=== PATIENT | female | born 1945 | race African-American/Black ===

== ENCOUNTER 2021-05-04 08:05 | Inpatient (IN) | payer MEDICARE ==
[~2021-05-04] VITALS: Ht 165.1 cm; Wt 105.0 kg
--- NOTE | 2021-05-04 08:33 | PHYS DOC ---
Adult General Chief Complaint Chief Complaint: NEURO SYMPTOMS/DEFICITS HPI HPI Patient is a 75-year-old female presenting via EMS for altered mental status. Patient is here visiting family from [place] and was supposed to fly home today. Daughter at bedside providing majority of history and states that patient was at baseline health yesterday without any known intoxication, trauma, ingestion or other major change in health. She was reportedly nauseous and had x2 episodes of nonbloody S nonbilious emesis. She began shaking which is not uncommon for her and subsequently fell asleep a couple hours later. Patient woke up this morning and was less responsive than usual with continued shaking concerning family members who ultimately called EMS for transfer to our facility. On arrival, EMS noted that patient GCS 10 and hemodynamically stable. Patient has extensive medical history significant for atrial fibrillation status post pacemaker with Eliquis use and dementia. She has had no recent changes in medication or sick contacts. She is fully vaccinated against COVID- 19 with additional booster. Daughter at bedside does note that patient is DNR/DNI Review of Systems Review of Systems Unobtainable due to mentation of patient Allergies Allergies Allergies Uncoded Allergies Type Severity Reaction Last Updated Verified SULFA Allergy Unknown 05/04/21 Physical Exam Physical Exam Constitutional: Patient is age-appropriate, in no acute distress but appears altered, toxic appearing HEENT: Head: Normocephalic but there is soft fluctuance palpated on posterior occiput without any obvious depression TMs clear, no hemotympanum Conjunctivae and EOM are normal. Pupils are equal, round, and reactive to light. Oropharynx is clear and moist. No hematomas or lacerations or abrasions to face or scalp OP clear, no blood, no malocclusion, dentition intact Nares clear, no nasal septal hematoma Midface stable Neck: C-spine midline nontender, no step-offs Cardiovascular: Normal rate, regular rhythm and normal heart sounds. Pulmonary/Chest: Effort normal and breath sounds normal. No respiratory distress. No wheezes. CTA bilaterally Abdominal: Soft. Bowel sounds are normal. Pt exhibits no distension. There is no tenderness. Musculoskeletal: No bony tenderness to extremities, no deformities, full ROM extremities Chest wall stable Pelvis stable and non-tender No vertebral TTP and spine without stepoffs Neurological: Pt is alert but not oriented to person place or time GCS 11 (E4, V3, M5) Moving all extremities willfully, able to wiggle all fingers and toes Motor and sensory function grossly intact Downgoing toes bilaterally to stimulation Skin: Skin is warm and dry. No abrasions, no lacerations Psychiatric: Unable to fully evaluate Current Patient Data Vital Signs Vital Signs Date Time Temp Pulse Resp B/P (MAP) Pulse Ox O2 Delivery O2 Flow Rate FiO2 05/04/21 08:06 98.1 104 16 152/100 (117) 100 Room Air Vital Signs Date Time Temp Pulse Resp B/P (MAP) Pulse Ox O2 Delivery O2 Flow Rate FiO2 05/04/21 08:06 98.1 104 16 152/100 (117) 100 Room Air Lab Results Laboratory Tests Test 05/04/21 08:25 05/04/21 08:28 05/04/21 08:32 05/04/21 08:45 White Blood Count 15.8 x10^3/uL Red Blood Count 3.38 x10^6/uL Hemoglobin 9.7 g/dL Hematocrit 29.4 % Mean Corpuscular Volume 87 fL Mean Corpuscular Hemoglobin 29 pg Mean Corpuscular Hemoglobin Concent 33 g/dL Red Cell Distribution Width 16.1 % Platelet Count 247 x10^3/uL Neutrophils (%) (Auto) 44 % Lymphocytes (%) (Auto) 46 % Monocytes (%) (Auto) 9 % Eosinophils (%) (Auto) 1 % Basophils (%) (Auto) 1 % Neutrophils # (Auto) 6.9 x10^3uL Lymphocytes # (Auto) 7.3 x10^3/uL Monocytes # (Auto) 1.3 x10^3/uL Eosinophils # (Auto) 0.1 x10^3/uL Basophils # (Auto) 0.2 x10^3/uL Segmented Neutrophils % 41 % Lymphocytes % 44 % Atypical Lymphocytes % (Manual) 10 % Monocytes % 3 % Eosinophils % 1 % Myelocytes % 1 % Platelet Estimate Adequate Platelet Clumps, EDTA Present Prothrombin Time 11.6 SEC Prothromb Time International Ratio 1.1 Activated Partial Thromboplast Time 24 SEC Sodium Level 144 mmol/L Potassium Level 4.9 mmol/L Chloride Level 107 mmol/L Carbon Dioxide Level 26 mmol/L Anion Gap 11 Blood Urea Nitrogen 53 mg/dL Creatinine 1.8 mg/dL Estimated GFR (Cockcroft-Gault) 33.0 BUN/Creatinine Ratio 29 Glucose Level 124 mg/dL Lactic Acid Level 1.5 mmol/L Calcium Level 8.7 mg/dL Phosphorus Level 3.0 mg/dL Magnesium Level 3.1 mg/dL Total Bilirubin 0.4 mg/dL Aspartate Amino Transf (AST/SGOT) 40 U/L Alanine Aminotransferase (ALT/SGPT) 14 U/L Alkaline Phosphatase 72 U/L Troponin I High Sensitivity 21 ng/L EH-Blf-C-Type Natriuretic Peptide 913 pg/mL Total Protein 6.7 g/dL Albumin 3.0 g/dL Albumin/Globulin Ratio 0.8 Lipase 174 U/L Salicylates Level 1.3 mg/dL Salicylate Last Dose Date Unknown Salicylate Last Dose Time Unknown Acetaminophen Level < 2.0 mcg/mL Acetaminophen Last Dose Date Unknown Acetaminophen Last Dose Time Unknown Ethyl Alcohol Level < 10 mg/dL Glucose (Fingerstick) 117 mg/dL Influenza Type A (Rapid) Negative Influenza Type B (Rapid) Negative SARS-CoV-2 Antigen (Rapid) Negative Bedside Venous pH 7.61 Bedside Venous pCO2 29 mmHg Bedside Venous pO2 103 mmHg Venous Blood HCO3 29 mmol/L POC Venous O2 Saturation (Areli) 99 % Bedside FiO2 21 Test 05/04/21 09:18 Urine Collection Type U cath Urine Color Yellow Urine Clarity Clear Urine pH 7.0 Urine Specific [place] 1.015 Urine Protein Neg Urine Glucose (UA) Neg mg/dL Urine Ketones (Stick) Neg mg/dL Urine Blood Neg Urine Nitrite Neg Urine Bilirubin Neg Urine Urobilinogen Dipstick 0.2 mg/dL Urine Leukocyte Esterase Neg Urine RBC Occ /HPF Urine WBC Occ /HPF Urine Squamous Epithelial Cells Many /LPF Urine Transitional Epithelial Cells Mod /LPF Urine Renal Epithelial Cells Few /LPF Urine Bacteria 0 /HPF Urine Hyaline Casts Occ /HPF Urine Mucus Slight /LPF Urine Opiates Screen Neg Urine Methadone Screen Neg Urine Barbiturates Neg Urine Phencyclidine Screen Neg Urine Amphetamine/Methamphetamine Neg Urine Benzodiazepines Screen Neg Urine Cocaine Screen Neg Urine Cannabinoids Screen Neg Urine Ethyl Alcohol Neg EKG EKG EKG ordered and interpreted by myself at 0813 hrs. as an AV paced rhythm at 85 bpm, prolonged QRS at 150 and QTC at 500, left axis deviation, no STEMI Radiology/Procedures Radiology/Procedures EXAMINATION: CT HEAD/BRAIN WO CLINICAL HISTORY: Altered mental status TECHNIQUE: Serial axial images without IV contrast were obtained from the vertex to the foramen magnum. CT Dose Reduction Employed: One or more of the following individualized dose reduction techniques were utilized for this examination: 1. Automated exposure control 2. Adjustment of the mA and/or kV according to patient size 3. Use of iterative reconstruction technique. COMPARISON: None FINDINGS: Acute Change: No evidence of an acute infarct or other acute parenchymal process. Hemorrhage: No evidence of acute intracranial hemorrhage. Mass Lesion/Mass Effect: No evidence of intracranial mass or extraaxial fluid collection. No significant mass effect. Chronic Change: Scattered patchy foci of hypoattenuation in the supratentorial white matter, nonspecific but likely represents mild microvascular ischemia. Atherosclerotic calcification of the intracranial portion of the bilateral internal carotid arteries. Parenchyma: Mild generalized volume loss, asymmetrically prominent in the frontal lobes. Ventricles: Ventricular enlargement concordant with degree of parenchymal volume loss. Paranasal Sinuses and Skull Base: Visualized paranasal sinuses clear. Visualized skull base and soft tissues unremarkable. IMPRESSION: No evidence of acute intracranial abnormality. Electronically signed by: Lenin Burton DO (05/04/2021 8:55 AM) [id number] /////////////////////////////// EXAMINATION: XR CHEST 1V CLINICAL HISTORY: Nausea and vomiting EXAM DATE/TIME: 05/04/2021 8:40 AM COMPARISON: None FINDINGS: Lines, Tubes, and Devices: Implantable cardiac loop recorder in place. Cardiomediastinal Silhouette: Cardiomegaly. Aortic atherosclerotic calcification. Lungs and Pleura: Mild bibasilar subsegmental atelectasis and/or scarring. No focal airspace consolidation or pleural effusion. Pulmonary vasculature unremarkable. Bones and Soft Tissues: Degenerative changes in the thoracic spine. IMPRESSION: No evidence of acute cardiopulmonary abnormality. Cardiomegaly. Electronically signed by: Lenin Burton DO (05/04/2021 8:57 AM) [id number] ////////////////////////// EXAMINATION: (CT CHEST WITHOUT IV CONTRAST and CT ABDOMEN AND PELVIS WITHOUT IV CONTRAST) CLINICAL HISTORY: Altered mental status TECHNIQUE: CT of the chest performed without IV contrast, scanning from the thoracic inlet to the upper abdomen. CT of the abdomen and pelvis performed without IV contrast, scanning from just above the dome of the diaphragm to the symphysis pubis. CT Dose Reduction Employed: One or more of the following individualized dose reduction techniques were utilized for this examination: 1. Automated exposure control 2. Adjustment of the mA and/or kV according to patient size 3. Use of iterative reconstruction technique. COMPARISON: Chest radiograph same day FINDINGS: CHEST: Lines, Tubes, and Devices: Implantable cardiac loop recorder in place. Lung Parenchyma and Pleura: Prominent respiratory motion artifact limits evaluation. Mild scattered subsegmental atelectasis and/or scarring, greatest in the lung bases. No consolidation. No pleural effusion. Central airways are patent. Lower Neck, Mediastinum, and Heart: Visualized thyroid gland within normal limits. No mediastinal, hilar, or axillary lymphadenopathy. Main pulmonary artery normal in caliber. Mild aortic atherosclerotic calcification without aneurysm. Mild coronary atherosclerotic calcification, incompletely evaluated. Cardiomegaly. Bones/Soft Tissues: Multilevel cervicothoracic degenerative changes. ABDOMEN/PELVIS: Liver: Unremarkable. Biliary: Gallbladder unremarkable. Spleen: Unremarkable. Pancreas: Unremarkable. Adrenals: Unremarkable. Kidneys: Unremarkable. GI Tract: No dilated bowel. Mild diverticulosis distal colon without evidence of acute diverticulitis. Appendix within normal limits. Vasculature: Arterial atherosclerotic calcification without aneurysm. Pelvis: Mildly filled urinary bladder. Myometrial and parametrial calcifications, likely vascular. Ovaries unremarkable. Bones/Soft Tissues: Grade 1 L4-5 anterolisthesis with suspected remote bilateral L4 spondylolysis. Multilevel lumbar facet arthropathy, greatest in the lower lumbar spine. IMPRESSION: No evidence of acute cardiopulmonary or abdominopelvic abnormality. Electronically signed by: Lenin Burton DO (05/04/2021 9:15 AM) [id number] Heart Score C/O Chest Pain: No HEART Score for Chest Pain: HEART Score for Chest Pain Response (Comments) Value History Moderately Suspicious 1 ECG Nonspecific Repolarizatio 1 Age > 65 2 Risk Factors >3 Risk Factors or Hx CAD 2 Troponin < Normal Limit 0 Total 6 Risk Factors: Risk Factors: DM, Current or recent (<one month) smoker, HTN, HLP, family history of CAD, obesity. Risk Scores: Risk Factors: DM, Current or recent (<one month) smoker, HTN, HLP, family history of CAD, obesity. Course & Med Decision Making Course & Med Decision Making Airway patent, breathing unlabored, IV access and vitals obtained that were grossly nonconcerning HPI limited from patient, physical exam and comprehensive ER work-up ordered Further history elicited from family members, no obvious ingestion, trauma or other mechanism of injury to precipitate presentation today I reviewed entirety of ER work-up findings with patient and family at bedside, I disclosed that all findings were nonlife concerning revealing microcytic anemia, leukocytosis, and metabolic alkalosis likely due to recent vomiting With this said, patient clearly not at baseline, daughter at bedside agrees. Joint decision made to admit for further inpatient medical work-up. [facility] need for [facility] for metabolic encephalopathy versus symptomatic tar dive dyskinesia Patient ultimately accepted under the care of Dr. Carrillo. Daughter at bedside notified of this plan of care and she was amenable. She confirms that patient is DNR at time of admission Dragon Disclaimer Dragon Disclaimer This electronic medical record was generated, in whole or in part, using a voice recognition dictation system. Departure Departure: Impression: Primary Impression: Acute metabolic encephalopathy Additional Impression: Tardive dyskinesia Disposition: ADMITTED INPATIENT Admitting Physician: John Carrillo Condition: STABLE Problem Qualifiers JAYLYN WINTERS DO May 04, 2021 08:33
[2021-05-04 08:47] LABS: BASO # 0.2 x10^3/uL (0.0-0.2); BASO % 1 % (0-3); EOS # 0.1 x10^3/uL (0.0-0.7); EOS % 1 % (0-3); HEMATOCRIT 29.4 % (36.0-47.0); HEMOGLOBIN 9.7 g/dL (12.0-15.5); LYMPH # 7.3 x10^3/uL (1.0-4.8); LYMPH % 46 % (24-48); MEAN CORPUSCULAR HEMOGLOBIN 29 pg (25-35); MEAN CORPUSCULAR HGB CONC 33 g/dL (31-37); MEAN CORPUSCULAR VOLUME 87 fL (79-100); MONO # 1.3 x10^3/uL (0.0-1.1); MONO % 9 % (0-9); NEUT # 6.9 x10^3uL (1.8-7.7); NEUT % 44 % (31-73); PLATELET COUNT 247 x10^3/uL (140-400); RED BLOOD COUNT 3.38 x10^6/uL (3.50-5.40); RED CELL DISTRIBUTION WIDTH 16.1 % (11.5-14.5); WHITE BLOOD COUNT 15.8 x10^3/uL (4.0-11.0)
[2021-05-04 08:57] LABS: CALCIUM 8.7 mg/dL (8.5-10.1); CREATININE 1.8 mg/dL (0.6-1.0)
--- NOTE | 2021-05-04 08:57 | RAD ---
EXAMINATION: CT HEAD/BRAIN WO CLINICAL HISTORY: Altered mental status TECHNIQUE: Serial axial images without IV contrast were obtained from the vertex to the foramen magnu m. CT Dose Reduction Employed: One or more of the following individualized dose reduction techniques zully e utilized for this examination: 1. Automated exposure control 2. Adjustment of the mA and/or kV ac cording to patient size 3. Use of iterative reconstruction technique. COMPARISON: None FINDINGS: Acute Change: No evidence of an acute infarct or other acute parenchymal process. Hemorrhage: No evidence of acute intracranial hemorrhage. Mass Lesion/Mass Effect: No evidence of intracranial mass or extraaxial fluid collection. No signific ant mass effect. Chronic Change: Scattered patchy foci of hypoattenuation in the supratentorial white matter, nonspeci fic but likely represents mild microvascular ischemia. Atherosclerotic calcification of the intracran ial portion of the bilateral internal carotid arteries. Parenchyma: Mild generalized volume loss, asymmetrically prominent in the frontal lobes. Ventricles: Ventricular enlargement concordant with degree of parenchymal volume loss. Paranasal Sinuses and Skull Base: Visualized paranasal sinuses clear. Visualized skull base and soft tissues unremarkable. IMPRESSION: No evidence of acute intracranial abnormality. Electronically signed by: Lenin Burton DO (05/04/2021 8:55 AM) [id number]
--- NOTE | 2021-05-04 08:59 | RAD ---
EXAMINATION: XR CHEST 1V CLINICAL HISTORY: Nausea and vomiting EXAM DATE/TIME: 05/04/2021 8:40 AM COMPARISON: None FINDINGS: Lines, Tubes, and Devices: Implantable cardiac loop recorder in place. Cardiomediastinal Silhouette: Cardiomegaly. Aortic atherosclerotic calcification. Lungs and Pleura: Mild bibasilar subsegmental atelectasis and/or scarring. No focal airspace consolid ation or pleural effusion. Pulmonary vasculature unremarkable. Bones and Soft Tissues: Degenerative changes in the thoracic spine. IMPRESSION: No evidence of acute cardiopulmonary abnormality. Cardiomegaly. Electronically signed by: Lenin Burton DO (05/04/2021 8:57 AM) [id number]
[2021-05-04 09:03] LABS: ACETAMIN < 2.0 mcg/mL (10-30); ETHANOL < 10 mg/dL (0-10); SALIC 1.3 mg/dL (2.8-20.0)
[2021-05-04 09:10] LABS: ALBUMIN/GLOBULIN RATIO 0.8 (1.0-1.7); TOTAL BILIRUBIN 0.4 mg/dL (0.2-1.0); TOTAL PROTEIN 6.7 g/dL (6.4-8.2)
[2021-05-04 09:12] LABS: INFLUENZA A PATIENT NEGATIVE (NEGATIVE); INFLUENZA B PATIENT NEGATIVE (NEGATIVE)
--- NOTE | 2021-05-04 09:17 | RAD ---
EXAMINATION: (CT CHEST WITHOUT IV CONTRAST and CT ABDOMEN AND PELVIS WITHOUT IV CONTRAST) CLINICAL HISTORY: Altered mental status TECHNIQUE: CT of the chest performed without IV contrast, scanning from the thoracic inlet to the upp er abdomen. CT of the abdomen and pelvis performed without IV contrast, scanning from just above the dome of the diaphragm to the symphysis pubis. CT Dose Reduction Employed: One or more of the following individualized dose reduction techniques wer e utilized for this examination: 1. Automated exposure control 2. Adjustment of the mA and/or kV ac cording to patient size 3. Use of iterative reconstruction technique. COMPARISON: Chest radiograph same day FINDINGS: CHEST: Lines, Tubes, and Devices: Implantable cardiac loop recorder in place. Lung Parenchyma and Pleura: Prominent respiratory motion artifact limits evaluation. Mild scattered s ubsegmental atelectasis and/or scarring, greatest in the lung bases. No consolidation. No pleural eff usion. Central airways are patent. Lower Neck, Mediastinum, and Heart: Visualized thyroid gland within normal limits. No mediastinal, hi lar, or axillary lymphadenopathy. Main pulmonary artery normal in caliber. Mild aortic atheroscleroti c calcification without aneurysm. Mild coronary atherosclerotic calcification, incompletely evaluated . Cardiomegaly. Bones/Soft Tissues: Multilevel cervicothoracic degenerative changes. ABDOMEN/PELVIS: Liver: Unremarkable. Biliary: Gallbladder unremarkable. Spleen: Unremarkable. Pancreas: Unremarkable. Adrenals: Unremarkable. Kidneys: Unremarkable. GI Tract: No dilated bowel. Mild diverticulosis distal colon without evidence of acute diverticulitis . Appendix within normal limits. Vasculature: Arterial atherosclerotic calcification without aneurysm. Pelvis: Mildly filled urinary bladder. Myometrial and parametrial calcifications, likely vascular. Ov moose unremarkable. Bones/Soft Tissues: Grade 1 L4-5 anterolisthesis with suspected remote bilateral L4 spondylolysis. Mu ltilevel lumbar facet arthropathy, greatest in the lower lumbar spine. IMPRESSION: No evidence of acute cardiopulmonary or abdominopelvic abnormality. Electronically signed by: Lenin Burton DO (05/04/2021 9:15 AM) [id number]
[2021-05-04 09:33] LABS: POTASSIUM 4.9 mmol/L (3.5-5.1)
[2021-05-04 10:00] LABS: MAGNESIUM 3.1 mg/dL (1.8-2.4)
[2021-05-04 10:18] LABS: BARBITURATES NEG (NEG); BENZODIAZEPINES NEG (NEG); CANNABINOIDS NEG (NEG); COCAINE NEG (NEG); METHADONE NEG (NEG); OPIATES NEG (NEG); PHENCYCLIDINE NEG (NEG)
[2021-05-04 10:22] LABS: BACTERIA,URINE 0 /HPF (0-FEW); BILIRUBIN,URINE NEG (NEG); CLARITY,URINE CLEAR; COLOR,URINE YELLOW; GLUCOSE,URINE NEG (NEG); HYALINE CASTS, URINE OCC /HPF; NITRITE,URINE NEG (NEG); RBC,URINE OCC /HPF (0-2); SQUAMOUS EPITHELIAL CELL,UR MANY /LPF; UROBILINOGEN,URINE 0.2 mg/dL (0.2 mg/dL); WBC,URINE OCC /HPF (0-4)
[2021-05-04 10:32] LABS: AMPHETAMINE/METHAMPHETAMINE NEG (NEG)
[2021-05-04] MEDS ORDERED: NITROGLYCERIN SUBLINGUAL 0.4 MG BOTTLE OF 25. SL PRN (11:00)
[2021-05-04] MEDS ORDERED: ACETAMINOPHEN 325 MG TABLET PO PRN (11:00)
[2021-05-04 11:38] LABS: % ATYL 10 % (0-0); % EOS 1 % (0-5); % LYMPHS 44 % (24-48); % MONOS 3 % (0-10); % MYELOS 1 % (0-0); % SEGS 41 % (35-66); PLATELET CLUMP PRESENT; PLT ESTIMATE ADEQUATE (ADEQUATE)
[2021-05-04] MEDS ORDERED: CYAN100031 PO (12:05)
[2021-05-04] MEDS ORDERED: ALBU2.5V8 INH (12:05)
[2021-05-04] MEDS ORDERED: ACET500T68 PO (12:05)
[2021-05-04] MEDS ORDERED: DILT120C99 PO (12:06)
[2021-05-04] MEDS ORDERED: DONE10TA7 PO (12:06)
[2021-05-04] MEDS ORDERED: MIRT30TA93 PO (12:06)
[2021-05-04] MEDS ORDERED: PREG150C PO (12:06)
[2021-05-04] MEDS ORDERED: SENN1TAB99 PO (12:06)
[2021-05-04] MEDS ORDERED: FLUT1DIS5 IH (12:06)
[2021-05-04] MEDS ORDERED: RIVA20TA2 PO (12:06)
[2021-05-04] MEDS ORDERED: PANT40TA6 PO (12:06)
[2021-05-04] MEDS ORDERED: SPIR25TA5 PO (12:06)
[2021-05-04] MEDS ORDERED: TORS20TA2 PO (12:06)
[2021-05-04] MEDS ORDERED: METO2.5T PO (12:06)
[2021-05-04] MEDS ORDERED: ERGO800010 PO (12:06)
--- NOTE | 2021-05-04 12:16 | HP ---
DATE OF SERVICE: 05/04/2021 ADMIT DATE: 05/04/2021 ATTENDING PHYSICIAN: Dr. Carrillo. CHIEF COMPLAINT: Altered mentation. HISTORY OF PRESENT ILLNESS: The patient is a 75-year-old female who was in the process of getting to the airport to fly back on to [place]. She was fine until earlier today, she developed some nausea, 2 episodes of emesis. She started shaking. These are not seizure activity. They appear more to be a tardive dyskinesia. She is arousable, but has a change in her mentation. She was sent to the emergency room. She had a negative workup, blood work was unremarkable. CT of the head showed no acute strokes or bleed. The patient was admitted then with altered mentation and probable tardive dyskinesia. PAST MEDICAL HISTORY: Significant for chronic dementia, she has atrial fibrillation, permanent pacemaker and she is on some diuretic. ALLERGIES: SHE HAS ALLERGIES TO SULFA DRUGS, REACTION IS UNCLEAR. CURRENT MEDICATIONS: Include albuterol, vitamin B12, diltiazem 120, Aricept, vitamin D2, fluticasone, metolazone 2.5 mg daily, Remeron 30 mg at bedtime, Protonix, Lyrica, Xarelto, senna, Aldactone and torsemide. SOCIAL HISTORY: She is a nonsmoker, nondrinker. REVIEW OF SYSTEMS: Significant for the chronic medical issues. She has profound dementia. She has very little short-term memory. She has no COVID exposure. She has had vaccination. All other systems were reviewed and turned to be negative. The patient has advanced directives. She is DNR. PHYSICAL EXAMINATION: GENERAL: When I saw her, this is a pleasant elderly female. INITIAL VITAL SIGNS: Showed a blood pressure of 137/68 mmHg, pulse is 72 and regular. She was afebrile. HEENT: Head is without trauma. Pupils are reactive. Sclerae nonicteric. Oropharynx is clear. NECK: Supple, no bruits identified. LUNGS: Clear to auscultation. CARDIOVASCULAR: Showed regular heart tones. No gallops. ABDOMEN: Soft. EXTREMITIES: Without edema. NEUROLOGIC: Profoundly demented. She has purposeless movement consistent with tardive dyskinesia. PERTINENT LABORATORY STUDIES: Admission hemoglobin 9.7 g/dL, white count 15,800. Electrolytes within normal range. Creatinine is 1.8 mg%, which is slightly higher than normal. Coronavirus swabs are negative. CT of the head showed no evidence of acute intracranial process. ASSESSMENT: 1. A 75-year-old female with altered mentation. 2. Probable tardive dyskinesia. 3. Anemia of chronic disease. 4. History of permanent pacemaker. 5. Paroxysmal atrial fibrillation. 6. Chronic anticoagulation. PLAN: 1. Admit to the inpatient unit. 2. Meds have been simplified. We will continue her Xarelto and cardiac meds. 3. Stop diuretics. 4. Hold Remeron. 5. Empiric Benadryl. 6. Formal neurologic consultation in the morning. DANNA DR: Nereyda TID: [id number]
--- NOTE | 2021-05-04 12:32 | EKG ---
[address] [address] Test Date: 2021-05-04 Test Time: 08:11:53 Pat Name: RITA AGUAYO Department: Room: 109 A Gender: F [employer] Project Manager: KORINA : 1945 Requested By: ANAIS SANCHEZ Order Number: [id number] Reading MD: Mic Trejo MD Measurements Intervals [place] Rate: 85 P: [place]: QRS: -59 QRSD: 150 T: 101 QT: 420 QTc: 500 Interpretive Statements PROBABLE ATRIAL FIBRILLATION DEMAND V-PACING Electronically Signed On 05-04-2021 12:33:38 ELIGIBILITY COUNSELOR by Mic Trejo MD
[2021-05-04 14:16] VITALS: BP 119/61
[2021-05-04 15:14] VITALS: BP 115/52
[2021-05-04] MEDS: RIVAROXABAN 10 MG TABLET. PO SCH (16:16)
[2021-05-04 18:39] VITALS: BP 114/62
[2021-05-04] MEDS: PANTOPRAZOLE 40 MG TABLET. PO SCH (20:23)
[2021-05-04 23:42] VITALS: BP 139/85
--- NOTE | 2021-05-05 05:44 | CONS ---
DATE OF CONSULTATION: 05/04/2021 NEUROLOGY CONSULTATION REFERRING PHYSICIAN: Dr. Carrillo. REASON FOR CONSULTATION: Acute mental status changes. HISTORY OF PRESENT ILLNESS: This is a 75-year-old right-handed female who was admitted through Emergency Room earlier today on account of acute mental status changes. The patient got up this morning to fly back to [place]. She developed nausea and vomited twice. Sooner after, she started having jerking movements of the upper extremities and became very confused and not able to talk. According to ER physician, the patient was at baseline and according the patient's daughter she was fine without any change in her mental status. There have been no head injuries or fall or change in her medications. In Emergency Room, the patient was having jerking movements. Then, she fell asleep. Few hours later, the patient was found to be very drowsy. She was transferred to the floor in drowsy state. Neuro consult was requested to evaluate acute change of mental status. According to nursing staff on the floor, the patient has been sleepy until recently when she was found not able to communicate and having jerking movement confined to the left upper extremity and tremor of the head. Occasionally, she would have also jerking movement of the right upper extremity as well. Initial nonenhanced head CT scan was done earlier and revealed evidence of moderate volume loss of the brain along with chronic small vessel ischemic changes. Currently, the patient not able to provide any information. She did not respond to verbal command or any simple questions. She just looked at her left side with jerking movements of the left upper extremity. PAST MEDICAL HISTORY: Significant for chronic dementia, atrial fibrillation, vitamin D deficiency, vitamin B12 deficiency, depression and GERD. PAST SURGICAL HISTORY: Positive for permanent pacemaker placement. FAMILY HISTORY: Not obtainable. SOCIAL HISTORY: Not obtainable; however, the patient is a nonsmoker and nondrinker. REVIEW OF SYSTEMS: A 10-point review of system was performed as mentioned above in history of present illness. The patient is not able to communicate or follow any order. She just opened her eyes and not responsive to any commands. CURRENT HOME MEDICATIONS: Include Tylenol, albuterol inhaler, vitamin B12, diltiazem, donepezil, metolazone, mirtazapine, pantoprazole, Lyrica, ____, spironolactone, and torsemide. ALLERGIES: SULFA DRUGS. PHYSICAL EXAMINATION: GENERAL: Obese female, in no acute distress. She weighs 105 kilos. VITAL SIGNS: Blood pressure 114/62, respiratory rate 20, pulse is 62, oxygen saturation is 95% on room air and temperature is 98.3. HEENT: Normocephalic, atraumatic; otherwise, unremarkable. NECK: Supple. Negative for carotid bruit, lymphadenopathy or thyromegaly. LUNGS: Clear to A and P. CARDIOVASCULAR: Irregular irregular rhythm. Normal S1, S2. ABDOMEN: Soft. Bowel sounds positive. EXTREMITIES: Negative for cyanosis, clubbing or pedal edema. NEUROLOGIC: Mental Status: The patient is awake, noncommunicative and not able to say anything or provide any information, as if like she is aphasic. Cranial nerves: The pupils are equal and reactive to light. Extraocular movements are very slow. There is no nystagmus. There is no facial motor deficit. Hearing difficult to evaluate at this time as the patient is aphasic and not responding to any verbal commands. Further evaluation is limited at this time. Motor examination: The patient did not respond to any commands. Therefore, motor examination is very limited at this time. The patient has continuous mild jerking movements confined to the left upper extremity with head tremor and occasionally, we see some jerking movement of the right upper extremity as well. Sensory examination, minimum response to noxious stimuli. Deep tendon reflexes were hypoactive with absent Achilles responses. Gait not tested. LABORATORY DATA: CBC revealed white cells of 15.8, hemoglobin 9.7, hematocrit 29.4, platelet count 247,000. Coagulation is normal. Chemistry: Sodium 144, potassium 4.9, chloride 107, CO2 of 29, BUN high at 53 and creatinine 1.8, glucose 124, calcium 8.7. Troponin level is 21. Pro-BNP is high at 913. Urinalysis negative for urinary tract infections. Urine drug screen is negative. Serology is negative for and rapid COVID-19 is negative as well. DIAGNOSTIC DATA: Nonenhanced head CT scan as described above. Chest CT and abdomen unremarkable and chest x-ray revealed no acute cardiopulmonary process. IMPRESSION: 1. Acute encephalopathy, etiology uncertain; however, central nervous system pathology as a new stroke should be ruled out. 2. Intermittent jerking/tremor of the upper extremities, more prominent on the left side with tremor of the head and unresponsive to verbal commands. 3. Multiple medical problems include: A. Longstanding history of movement disorder, etiology uncertain. B. Hypertension. C. Cardiac arrhythmia, required permanent pacemaker placement with history of congestive heart failure, urinary incontinence and hypertension. 4. Chronic/acute renal failure. RECOMMENDATION: 1. If patient continues to have encephalopathy, brain MRI to rule out central nervous system pathology as a stroke is recommended. 2. Electroencephalogram. 3. We will continue with current care initiated by Dr. Carrillo/Dr Obrien. 4. We will try 1 mg Ativan for jerking movements of the upper extremity and tremor of the head. 5. For long care,the patient should followed up with [facility] as they have done extensive workup for her throughout this year and to obtain brain MRI and electroencephalogram as needed 6. Ativan may be repeated for continuous jerking movements. ANAHY/XIOMARA/[place] DR: Joce TID: [id number] MTDD
[2021-05-05 06:02] VITALS: BP 126/60
[2021-05-05] MEDS: PANTOPRAZOLE 40 MG TABLET. PO SCH ×2 (07:19→20:43)
[2021-05-05 10:52] VITALS: BP 127/65
--- NOTE | 2021-05-05 13:50 | PN ---
DATE: 05/05/2021 SUBJECTIVE: The patient is a 75-year-old -[place] female patient who was admitted yesterday to the Emergency Room of [facility] with altered mental status. She woke up yesterday morning to fly back to [place], [place], she developed nausea and vomited twice. Soon after that, she started having jerking movement of the upper extremities and became very confused and not able to talk. According to the ER physician, the patient was at baseline. According to patient's daughter, she was fine without any change in her mental status. There have been no head injuries or fall or change in her medication. In the Emergency Room, the patient was having jerking movement and then she fell asleep. Few hours later, the patient was found to be very drowsy. She was transferred to the floor in the drowsy state. Neuro consult was requested to evaluate acute change in mental status. According to nursing staff in the floor, the patient has been sleepy and was unable to communicate and having jerking movement, confined mostly to the left upper extremity and tremors of the head; however, when I saw her this afternoon, she was more awake, alert, able to move all extremities. I did not notice any jerking movement or seizure-like activity. However, the patient seemed to be very confused. She denied, however, any headache, denied any tingling or numbness. Denied any double vision. PHYSICAL EXAMINATION: GENERAL: When I examined her, she looked somewhat pale, not jaundiced or cyanosed, no lymphadenopathy, no thyromegaly, no jugular venous distention. No limb edema. VITAL SIGNS: Her heart rate was 82, blood pressure is 127/65, temperature was 98.2, respiratory rate was 14 and oxygen saturation was 97% on room air. HEAD, EYES, EARS, NOSE, AND THROAT: Showed normocephalic, atraumatic. NECK: Supple. HEART: Showed normal first and second heart sounds, no gallop or murmur. CHEST: Clear to auscultation, no crepitation or rhonchi. ABDOMEN: Distended, soft, nontender. NEUROLOGIC: She is awake, alert, although confused. All her cranial nerves intact. She moves extremities without difficulty, which is obviously an improvement. She has no more abnormal jerking movement of her extremities and she is more awake, alert, although continued to be confused. LABORATORY DATA: Her lab work yesterday showed a white cell count of 15,800, hemoglobin 9.7, hematocrit 29.4, MCV 87 and platelet count of 247,000. Her chemistry showed a serum sodium 144, potassium 4.9, chloride 107, bicarbonate 26, anion gap of 11, BUN 53, creatinine 1.8. Estimated GFR was 33 mL per minute. Her glucose 124, calcium was 8.7. Lactic acid is 1.5, serum phosphorus was 3. Her magnesium was 3.1. Total bilirubin, AST, ALT, alkaline phosphatase were normal. Her beta natriuretic peptide was 913. Total protein 6.7, albumin 3, serum lipase was 174. Her prothrombin time, INR and APTT were normal. Blood gases are also normal. Urinalysis essentially unremarkable and toxic screen was essentially negative. ASSESSMENT: 1. Altered mental status without any obvious explanation as the patient's CT scan was unremarkable. She does have chronic kidney disease, but her electrolytes are all within normal range including sodium, potassium as well as calcium. She does have a slightly elevated white cell count; however, her manual differential showed that 46% are lymphocytes and 44% neutrophils, indicating some form of viral infection. However, her coronavirus by PCR was negative. Her influenza A and B were negative. The patient carries list of medical problems including chronic diastolic congestive heart failure. 2. Chronic kidney disease. She has aortic valve calcification, bronchial asthma, bilateral atrial dilatation. She also has chronic atrial fibrillation, chronic heart failure, chronic kidney disease, chronic obstructive pulmonary disease, dementia without behavioral disturbances, depression, diverticulosis of large intestine without hemorrhage. Did have esophageal dysphagia, essential hypertension, history of diverticular GI bleed, iron deficiency anemia, microcytic anemia, mixed hyperlipidemia, morbid obesity with obstructive sleep apnea, nonrheumatic tricuspid valve regurgitation, obstructive sleep apnea, on CPAP, primary osteoarthritis of both knee joints and pulmonary hypertension, spinal stenosis. 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 PLAN: The patient seems to have improved dramatically from admission and I will consult Physical and Occupational Therapy as well as the speech and language pathologist and repeat her labs again and decide the further management accordingly. IKE DR: Kirill TID: [id number]
--- NOTE | 2021-05-05 13:52 | PN ---
DATE: 05/05/2021 SUBJECTIVE: The patient denies any new medical or neurological complaints; however, she denies headaches, recent fall or head injuries. The patient had a quiet night. She did not have any significant jerking movements or seizure-like activities. OBJECTIVE: GENERAL: Obese female, not in acute distress. VITAL SIGNS: Blood pressure 126/60, respiratory rate 18, pulse is 76, temperature 96.1, oxygen saturation is 95% on room air. HEENT: Normocephalic, atraumatic, otherwise unremarkable. NECK: Supple, negative for carotid bruit, lymphadenopathy or thyromegaly. LUNGS: Clear to A and P. CARDIOVASCULAR: Regular rate and rhythm. Normal S1 and S2. ABDOMEN: Soft. Bowel sounds positive. EXTREMITIES: Negative for cyanosis, clubbing or pedal edema. NEUROLOGIC: Mental status: The patient is more alert and oriented to herself and she knows she is in the hospital. She is disoriented to time, date, month or year. She follows one-step commands. She is communicative. Memory, judgment and abstracting thinking are poor. The patient denies hallucination or delusion. Cranial nerves are grossly intact. Motor examination: No focal muscle bulk was seen. The patient moves her upper and lower extremities as ordered, but the strength is 4/5 throughout. Sensory examination revealed normal pinprick and light touch senses. Deep tendon reflexes were asymmetric and hypoactive with absent Achilles responses. Gait not tested. IMPRESSION: 1. Acute encephalopathy - improved. 2. Longstanding history of dementia. The patient may be back to her baseline. 3. Multiple medical problems include cardiac arrhythmias as atrial fibrillations, depressions, hypertension, vitamin D and vitamin B12 deficiencies. RECOMMENDATIONS: Continue with current management and previous neurologic recommendation as needed. ANAHY/JULIAN/QIANA DR: ANAHY/rob TID: [id number]
[2021-05-05 15:30] VITALS: BP 131/71
[2021-05-05 15:57] LABS: BASO # 0.1 x10^3/uL (0.0-0.2); BASO % 1 % (0-3); EOS # 0.1 x10^3/uL (0.0-0.7); EOS % 1 % (0-3); HEMATOCRIT 30.7 % (36.0-47.0); HEMOGLOBIN 10.1 g/dL (12.0-15.5); LYMPH # 2.9 x10^3/uL (1.0-4.8); LYMPH % 35 % (24-48); MEAN CORPUSCULAR HEMOGLOBIN 29 pg (25-35); MEAN CORPUSCULAR HGB CONC 33 g/dL (31-37); MEAN CORPUSCULAR VOLUME 87 fL (79-100); MONO # 0.9 x10^3/uL (0.0-1.1); MONO % 10 % (0-9); NEUT # 4.4 x10^3uL (1.8-7.7); NEUT % 52 % (31-73); PLATELET COUNT 289 x10^3/uL (140-400); RED BLOOD COUNT 3.54 x10^6/uL (3.50-5.40); RED CELL DISTRIBUTION WIDTH 16.3 % (11.5-14.5); WHITE BLOOD COUNT 8.4 x10^3/uL (4.0-11.0)
[2021-05-05 16:04] LABS: CALCIUM 9.4 mg/dL (8.5-10.1); CREATININE 1.9 mg/dL (0.6-1.0); POTASSIUM 3.8 mmol/L (3.5-5.1)
[2021-05-05 16:10] LABS: ALBUMIN 3.3 g/dL (3.4-5.0); ALBUMIN/GLOBULIN RATIO 0.8 (1.0-1.7); TOTAL BILIRUBIN 0.4 mg/dL (0.2-1.0); TOTAL PROTEIN 7.5 g/dL (6.4-8.2)
[2021-05-05] MEDS: RIVAROXABAN 10 MG TABLET. PO SCH (16:35)
[2021-05-05 19:00] VITALS: BP 117/57
[2021-05-05 23:00] VITALS: BP 138/74
[2021-05-06 05:00] VITALS: BP 121/60
[2021-05-06] MEDS: PANTOPRAZOLE 40 MG TABLET. PO SCH ×2 (07:47→20:52)
--- NOTE | 2021-05-06 08:29 | PDOC2 ---
CARDIAC CONSULT DATE OF CONSULT DOS: DATE: 05/06/21 TIME: 08:24 REASON FOR CONSULT Reason for Consult Pacermaker malfunction REFERRING PHYSICIAN Referring Physician Dr. Maza SOURCE Source: Chart review, Patient HPI History of Present Illness This is a 75 yo female who presented secondary to altered mental status. Patient is here from [place], [place] visiting family. Was scheduled to fly home the day of arrival, but had 2 episodes of nausea/vomiting and then began shaking uncontrollably, which is not uncommon per report. She went to sleep as usual. Woke up the next morning and was less responsive than baseline. EMS was called. According to nursing staff, patient was not able to communicate verbally and had jerking movement of the left upper extremity. CT head was obtain, which did not have any acute findings. Overnight, patient's slots manager was reading a HR in the upper 20's and low 30's, which prompted this consult. Patient has a history of AFIB and SSS s/p Medtonic Micra PPM implantation. This morning, patient's mentation has returned to baseline. She is pleasantly demented. She denies any chest pain, palpitations, dizziness, diaphoresis, or nausea/vomiting. Reviewed telemetry strips printed and all events recorded in slots manager. Although HR is recorded in the upper 20's and low 30's per monitor, the heart rate is actually in the 70-80 range. Monitor strips printed also in 70-80 range when calculated. There was no true significant bradycardia noted on telemetry whatsoever. PAST MEDICAL HISTORY Cardiovascular: AFIB, CHF, HTN, hyperipidemia, Other (SSS) Pulmonary: Asthma, COPD CENTRAL NERVOUS SYSTEM: Dementia GI: Diverticulosis, GERD, GI bleed Heme/Onc: Anemia NOS Psych: Depression Musculoskeletal: Osteoarthritis Renal/: Chronic renal insuff PAST SURGICAL HISTORY Past Surgical History: Pacemaker (Micra ) FAMILY HISTORY Family History: Heart Disease, Hypertension SOCIAL HISTORY Smoke: No ALCOHOL: none Drugs: None Lives: with Family CURRENT MEDICATIONS Current Medications Current Medications Acetaminophen (Tylenol) 650 mg PRN Q4HRS PRN PO FEVER > 100.3'F; Start 05/04/21 at 11:00; Stop 05/05/21 at 10:59; Status DC Nitroglycerin (Nitrostat) 0.4 mg PRN Q5MIN PRN SL CHEST PAIN; Start 05/04/21 at 11:00; Stop 05/05/21 at 10:59; Status DC Diltiazem HCl (Cardizem 24hr Cd) 120 mg DAILY PO Last administered on 05/06/21at 07:47; Start 05/05/21 at 09:00 Pantoprazole Sodium (Protonix) 40 mg BID PO Last administered on 05/06/21at 07:47; Start 05/04/21 at 21:00 Rivaroxaban (Xarelto) 20 mg DAILYWSUP PO Last administered on 05/05/21at 16:35; Start 05/04/21 at 17:00 Lorazepam (Ativan Inj) 1 mg 1X ONCE IVP Last administered on 05/04/21at 18:31; Start 05/04/21 at 18:30; Stop 05/04/21 at 18:31; Status DC Active Scripts Active Reported Torsemide 20 Mg Tablet 2 Tab PO DAILY Spironolactone 25 Mg Tablet 1 Tab PO DAILY Senna-Docusate Sodium Tablet (Sennosides/Docusate Sodium) 1 Each Tablet 2 Tab PO BID 5 Days Xarelto (Rivaroxaban) 20 Mg Tablet 1 Tab PO DAILYWSUP 30 Days with food Lyrica (Pregabalin) 150 Mg Capsule 1 Cap PO BID Pantoprazole Sodium 40 Mg Tablet.dr 1 Tab PO BID Mirtazapine 30 Mg Tab.rapdis 1 Tab PO QHS 30 Days Metolazone 2.5 Mg Tablet 2.5 Mg PO WEEKLY Advair 500-50 Diskus (Fluticasone/Salmeterol) 1 Each Disk.w.dev 1 Puff IH BID Ergocalciferol (Ergocalciferol (Vitamin D2)) 200 Mcg/1 Ml Drops 1,250 Mcg PO WEEKLY Donepezil Hcl 10 Mg Tablet 1 Tab PO QHS Diltiazem 24HR Cd (Diltiazem Hcl) 120 Mg Cap.er.24h 1 Cap PO DAILY 30 Days B-12 (Cyanocobalamin (Vitamin B-12)) 1,000 Mcg Tablet.er 1 Tab PO DAILY 30 Days Proair Hfa Inhaler (Albuterol Sulfate) 8.5 Gm Hfa.aer.ad 1 Puff INH PRN Q4HRS PRN Acetaminophen 500 Mg Tablet 1 Tab PO PRN Q6HRS PRN 15 Days ALLERGIES Allergies: Coded Allergies: Sulfa (Sulfonamide Antibiotics) (Verified Allergy, Unknown, 05/04/21) ROS Review of Systems 14 point ROS conducted with pertinent positives noted above in hPI PHYSICAL EXAM General: Alert, Oriented X3, Cooperative, No acute distress HEENT: Atraumatic Lungs: Clear to auscultation Heart: Other (AFIB, rate controlled. 2/6 systolic mumur) Abdomen: Soft Extremities: No edema Skin: No breakdown Neuro: Normal speech, Sensation intact Psych/Mental Status: Mood NL, Other (confused ) MUSCULOSKELETAL: Osteoarthritic changes both hands VITALS Vital Signs Vital Signs Date Time Temp Pulse Resp B/P (MAP) Pulse Ox O2 Delivery O2 Flow Rate FiO2 05/06/21 07:47 74 121/60 05/06/21 05:00 97.7 18 98 Room Air LABS LABS Laboratory Tests Test 05/04/21 08:25 05/04/21 08:28 05/04/21 08:32 05/04/21 08:45 White Blood Count 15.8 x10^3/uL (4.0-11.0) Red Blood Count 3.38 x10^6/uL (3.50-5.40) Hemoglobin 9.7 g/dL (12.0-15.5) Hematocrit 29.4 % (36.0-47.0) Mean Corpuscular Volume 87 fL (79-100) Mean Corpuscular Hemoglobin 29 pg (25-35) Mean Corpuscular Hemoglobin Concent 33 g/dL (31-37) Red Cell Distribution Width 16.1 % (11.5-14.5) Platelet Count 247 x10^3/uL (140-400) Neutrophils (%) (Auto) 44 % (31-73) Lymphocytes (%) (Auto) 46 % (24-48) Monocytes (%) (Auto) 9 % (0-9) Eosinophils (%) (Auto) 1 % (0-3) Basophils (%) (Auto) 1 % (0-3) Neutrophils # (Auto) 6.9 x10^3uL (1.8-7.7) Lymphocytes # (Auto) 7.3 x10^3/uL (1.0-4.8) Monocytes # (Auto) 1.3 x10^3/uL (0.0-1.1) Eosinophils # (Auto) 0.1 x10^3/uL (0.0-0.7) Basophils # (Auto) 0.2 x10^3/uL (0.0-0.2) Segmented Neutrophils % 41 % (35-66) Lymphocytes % 44 % (24-48) Atypical Lymphocytes % (Manual) 10 % (0-0) Monocytes % 3 % (0-10) Eosinophils % 1 % (0-5) Myelocytes % 1 % (0-0) Platelet Estimate Adequate (ADEQUATE) Platelet Clumps, EDTA Present Prothrombin Time 11.6 SEC (9.4-11.4) Prothromb Time International Ratio 1.1 (0.9-1.1) Activated Partial Thromboplast Time 24 SEC (23-33) Sodium Level 144 mmol/L (136-145) Potassium Level 4.9 mmol/L (3.5-5.1) Chloride Level 107 mmol/L (98-107) Carbon Dioxide Level 26 mmol/L (21-32) Anion Gap 11 (6-14) Blood Urea Nitrogen 53 mg/dL (7-20) Creatinine 1.8 mg/dL (0.6-1.0) Estimated GFR (Cockcroft-Gault) 33.0 BUN/Creatinine Ratio 29 (6-20) Glucose Level 124 mg/dL (70-99) Lactic Acid Level 1.5 mmol/L (0.4-2.0) Calcium Level 8.7 mg/dL (8.5-10.1) Phosphorus Level 3.0 mg/dL (2.6-4.7) Magnesium Level 3.1 mg/dL (1.8-2.4) Total Bilirubin 0.4 mg/dL (0.2-1.0) Aspartate Amino Transf (AST/SGOT) 40 U/L (15-37) Alanine Aminotransferase (ALT/SGPT) 14 U/L (14-59) Alkaline Phosphatase 72 U/L (46-116) Troponin I High Sensitivity 21 ng/L (4-50) SE-Eii-R-Type Natriuretic Peptide 913 pg/mL (0-449) Total Protein 6.7 g/dL (6.4-8.2) Albumin 3.0 g/dL (3.4-5.0) Albumin/Globulin Ratio 0.8 (1.0-1.7) Lipase 174 U/L (73-393) Salicylates Level 1.3 mg/dL (2.8-20.0) Salicylate Last Dose Date Unknown Salicylate Last Dose Time Unknown Acetaminophen Level < 2.0 mcg/mL (10-30) Acetaminophen Last Dose Date Unknown Acetaminophen Last Dose Time Unknown Ethyl Alcohol Level < 10 mg/dL (0-10) Glucose (Fingerstick) 117 mg/dL (70-99) Coronavirus (COVID-19)(PCR) Not detected (NOT DETECTD) Influenza Type A (Rapid) Negative (NEGATIVE) Influenza Type B (Rapid) Negative (NEGATIVE) SARS-CoV-2 Antigen (Rapid) Negative (NEGATIVE) Bedside Venous pH 7.61 (7.32-7.42) Bedside Venous pCO2 29 mmHg (41-51) Bedside Venous pO2 103 mmHg (20-40) Venous Blood HCO3 29 mmol/L (24-28) POC Venous O2 Saturation (Areli) 99 % Bedside FiO2 21 Test 05/04/21 09:18 05/05/21 15:35 Urine Collection Type U cath Urine Color Yellow Urine Clarity Clear Urine pH 7.0 Urine Specific [place] 1.015 Urine Protein Neg (NEG-TRACE) Urine Glucose (UA) Neg mg/dL (NEG) Urine Ketones (Stick) Neg mg/dL (NEG) Urine Blood Neg (NEG) Urine Nitrite Neg (NEG) Urine Bilirubin Neg (NEG) Urine Urobilinogen Dipstick 0.2 mg/dL (0.2 mg/dL) Urine Leukocyte Esterase Neg (NEG) Urine RBC Occ /HPF (0-2) Urine WBC Occ /HPF (0-4) Urine Squamous Epithelial Cells Many /LPF Urine Transitional Epithelial Cells Mod /LPF Urine Renal Epithelial Cells Few /LPF Urine Bacteria 0 /HPF (0-FEW) Urine Hyaline Casts Occ /HPF Urine Mucus Slight /LPF Urine Opiates Screen Neg (NEG) Urine Methadone Screen Neg (NEG) Urine Barbiturates Neg (NEG) Urine Phencyclidine Screen Neg (NEG) Urine Amphetamine/Methamphetamine Neg (NEG) Urine Benzodiazepines Screen Neg (NEG) Urine Cocaine Screen Neg (NEG) Urine Cannabinoids Screen Neg (NEG) Urine Ethyl Alcohol Neg (NEG) White Blood Count 8.4 x10^3/uL (4.0-11.0) Red Blood Count 3.54 x10^6/uL (3.50-5.40) Hemoglobin 10.1 g/dL (12.0-15.5) Hematocrit 30.7 % (36.0-47.0) Mean Corpuscular Volume 87 fL (79-100) Mean Corpuscular Hemoglobin 29 pg (25-35) Mean Corpuscular Hemoglobin Concent 33 g/dL (31-37) Red Cell Distribution Width 16.3 % (11.5-14.5) Platelet Count 289 x10^3/uL (140-400) Neutrophils (%) (Auto) 52 % (31-73) Lymphocytes (%) (Auto) 35 % (24-48) Monocytes (%) (Auto) 10 % (0-9) Eosinophils (%) (Auto) 1 % (0-3) Basophils (%) (Auto) 1 % (0-3) Neutrophils # (Auto) 4.4 x10^3uL (1.8-7.7) Lymphocytes # (Auto) 2.9 x10^3/uL (1.0-4.8) Monocytes # (Auto) 0.9 x10^3/uL (0.0-1.1) Eosinophils # (Auto) 0.1 x10^3/uL (0.0-0.7) Basophils # (Auto) 0.1 x10^3/uL (0.0-0.2) Sodium Level 149 mmol/L (136-145) Potassium Level 3.8 mmol/L (3.5-5.1) Chloride Level 113 mmol/L (98-107) Carbon Dioxide Level 27 mmol/L (21-32) Anion Gap 9 (6-14) Blood Urea Nitrogen 42 mg/dL (7-20) Creatinine 1.9 mg/dL (0.6-1.0) Estimated GFR (Cockcroft-Gault) 31.0 BUN/Creatinine Ratio 22 (6-20) Glucose Level 123 mg/dL (70-99) Calcium Level 9.4 mg/dL (8.5-10.1) Total Bilirubin 0.4 mg/dL (0.2-1.0) Aspartate Amino Transf (AST/SGOT) 20 U/L (15-37) Alanine Aminotransferase (ALT/SGPT) 16 U/L (14-59) Alkaline Phosphatase 78 U/L (46-116) Creatine Kinase 34 U/L (26-192) Total Protein 7.5 g/dL (6.4-8.2) Albumin 3.3 g/dL (3.4-5.0) Albumin/Globulin Ratio 0.8 (1.0-1.7) ECHOCARDIOGRAM Echocardiogram Echo 07/25 with LVEF 65%, mild/moderate RV dilatation, severe TR ASSESSMENT/PLAN Assessment/Plan 1. Encephalopathy with underlying dementia; CT head without acute findings. as per neuro 2. Leukocytosis 3. JUANA on CKD 4. SSS s/p PPM ([employer]tr[employer] Micra); tele strips reviewed, no significant bradycardia noted. (tele recorded HR in upper 20's and low 30's- these are incorrect. HR measured and actually in the 70-80 range. No true bradycardia recorded on tele whatsoever) 5. Permanent AFIB; continue rate control with Cardizem. Xarelto for stroke prophylaxis 6. Chronic diastolic CHF; clinically compensated. Echo 07/25 with preserved LV systolic function . 7. Hypertension; controlled Follow up with primary solution mixer upon discharge. ANSLEY RIVAS APRN May 06, 2021 08:29
[2021-05-06 10:32] VITALS: BP 125/69
[2021-05-06] MEDS ORDERED: ACETAMINOPHEN 500 MG TABLET PO PRN (14:30)
[2021-05-06] MEDS ORDERED: ALBUTEROL SULFATE 2.5 MG/3 ML NEBU. INH PRN (14:30)
[2021-05-06 15:16] VITALS: BP 110/68
[2021-05-06] MEDS: ALBUTEROL SULFATE 2.5 MG/3 ML NEBU. NEB SCH ×2 (16:06→21:27)
[2021-05-06] MEDS: RIVAROXABAN 10 MG TABLET. PO SCH (16:07)
--- NOTE | 2021-05-06 16:35 | PN ---
DATE: 05/06/2021 SUBJECTIVE: The patient denies any new medical or neurological complaints. OBJECTIVE: GENERAL: Obese female in no acute distress. VITAL SIGNS: Blood pressure 121/60, respiratory rate is 18, pulse is 74 and regular, temperature 97.7, oxygen saturation 98% on room air. HEENT: Normocephalic, atraumatic, otherwise unremarkable. NECK: Supple. Negative for carotid bruit, lymphadenopathy or thyromegaly. LUNGS: Clear to A and P. CARDIOVASCULAR: Regular rate and rhythm, normal S1, S2. There is no S3, S4 or murmur. ABDOMEN: Soft. Bowel sounds positive. EXTREMITIES: Negative for cyanosis, clubbing, or pedal edema. NEUROLOGIC: Mental status: The patient is alert and oriented x3. The speech is more fluent. There is no language dysfunction. Memory, judgment and abstracting thinking are fair. The patient denies hallucination or delusion. Cranial nerves are intact. No focal motor or sensory deficit. The strength is 4/5 throughout. Sensory examination revealed a normal pinprick and light touch senses throughout. Deep tendon reflexes were symmetric and hypoactive with absent Achilles responses. Gait: Not tested. IMPRESSION: 1. Acute encephalopathy -- resolved. 2. Longstanding history of dementia. The patient is back on her baseline. 3. Multiple medical problems include cardiac arrhythmia-atrial fibrillation, depression, hypertension, vitamin D and vitamin B12 deficiency and chronic kidney disease. RECOMMENDATIONS: Continue with current management initiated by Dr. Maza including physical therapy. ANAHY/CARROL/QIANA DR: Joce TID: [id number]
[2021-05-06 19:38] VITALS: BP 107/68
[2021-05-06] MEDS: SENNOSIDES/DOCUSATE 8.6/50MG TABLET. PO SCH (20:52)
[2021-05-06] MEDS: DONEPEZIL HCL 10 MG TABLET PO SCH (20:53)
[2021-05-06] MEDS: PREGABALIN 50 MG CAPSULE PO SCH (20:53)
--- NOTE | 2021-05-06 20:57 | PN ---
DATE: 05/06/2021 SUBJECTIVE: The patient is sitting comfortably in her chair in no apparent distress. She is awake, alert, responding at times appropriately. She apparently has been participating in physical therapy and has been able to walk with a walker. She has been eating and drinking, taking herself to the bathroom and basically dramatically improved from her initial presentation. We did attempt to transfer her to [facility] and also [facility]. Unfortunately, they do not have beds available. I did speak with Dr. Li, who recommended that she can be safely discharged home and she can be investigated as an outpatient. In fact, I have made arrangement for her to have an EEG done at Dr. Li's office on 05/12/2021 and also was planning to arrange for her to have an MRI as an outpatient to be done before her visit to Dr. Li. However, her daughter insistent that she cannot be discharged. The other daughter called and said that her has tested positive for COVID-19 pneumonia. PHYSICAL EXAMINATION: GENERAL: When I saw her this afternoon, she looked well and was clearly in no apparent respiratory distress. She was pale, but not jaundiced, cyanosed, no lymphadenopathy, no thyromegaly, no jugular venous distention. No lower limb edema. VITAL SIGNS: Her heart rate was 78, blood pressure was 125/69, temperature was 97.2, respiratory rate 20, and oxygen saturation was 100% on room air. HEAD, EYES, EARS, NOSE, AND THROAT: Normocephalic, atraumatic. NECK: Supple. HEART: Normal first and second heart sounds. No gallop, rub or murmur. CHEST: Clear to auscultation. No crepitation or rhonchi. ABDOMEN: Distended, soft, nontender. NEUROLOGIC: She is demented; however, all her cranial nerves are intact. She moves extremities without difficulty. She ambulates with a walker. Her intake over the last 24 hours and output are incompletely recorded. LABORATORY DATA: This morning showed a white cell count of 8400, hemoglobin 10, hematocrit 30, MCV 87, platelet count 289,000. Her serum sodium was 149, potassium 3.8, chloride 113, bicarbonate 27, anion gap of 9, BUN 42, creatinine 1.9. Estimated GFR was 31 mL per minute. Her glucose was 123 mg/dL, calcium was 9.4. Total bilirubin, AST, ALT, alkaline phosphatase were normal. Her total protein was 7.5, albumin 3.3. Her prothrombin time, INR and APTT were normal. Urinalysis essentially unremarkable and was negative for nitrite, leukocyte esterase, no wbc's and no bacteria. Her toxic screen was also negative. ASSESSMENT: 1. Acute encephalopathy, improved. 2. Longstanding history of dementia. 3. She has multiple other medical problems including atrial fibrillation, hypertension, chronic kidney disease, vitamin D and vitamin B12 deficiencies. She has also had mild hypernatremia. PLAN: To increase her water intake. We will continue with all her current medications including diltiazem to control her heart rate and rivaroxaban for stroke prevention. Continue with physical and occupational therapy. I reconciled all her other medication. ROBBIN DR: Kirill TID: [id number]
[2021-05-06] MEDS ORDERED: NON FORMULARY ITEM (Fluticasone/Salmeterol (Advair 500-50 Diskus) 1 PUFF) IH SCH (21:00)
[2021-05-06] MEDS: BUDESONIDE 0.5 MG/2 ML NEBU NEB SCH (21:27)
[2021-05-06] MEDS: MIRTAZAPINE ODT 30 MG TAB.RAPDIS. PO SCH (21:37)
[2021-05-06 23:30] VITALS: BP 98/62
[2021-05-07] MEDS: ALBUTEROL SULFATE 2.5 MG/3 ML NEBU. NEB SCH ×4 (05:36→21:02)
[2021-05-07] MEDS: BUDESONIDE 0.5 MG/2 ML NEBU NEB SCH ×2 (05:36→21:03)
[2021-05-07 06:15] VITALS: BP 110/56
[2021-05-07] MEDS: TORSEMIDE 20 MG TABLET. PO SCH (08:05)
[2021-05-07] MEDS: PANTOPRAZOLE 40 MG TABLET. PO SCH ×2 (08:05→21:13)
[2021-05-07] MEDS: SENNOSIDES/DOCUSATE 8.6/50MG TABLET. PO SCH ×2 (08:06→21:11)
[2021-05-07] MEDS: PREGABALIN 50 MG CAPSULE PO SCH ×2 (08:06→21:13)
[2021-05-07] MEDS: CYANOCOBALAMIN (VITAMIN B-12) 1,000 MCG TABLET. PO SCH (08:06)
[2021-05-07] MEDS: SPIRONOLACTONE 25 MG TABLET PO SCH (08:07)
[2021-05-07 11:11] VITALS: BP 79/48
--- NOTE | 2021-05-07 12:39 | PDOC ---
PROGRESS NOTES Date of Service DOS: DATE: 05/07/21 TIME: 12:39 Diagnosis Problem Problems Medical Problems: (1) Acute metabolic encephalopathy Status: Acute (2) Tardive dyskinesia Status: Acute Assessment 1. Encephalopathy with underlying dementia; CT head without acute findings. as per neuro 2. Leukocytosis 3. JUANA on CKD: Improving 4. SSS s/p PPM (Medtronic Micra); tele strips reviewed, no significant bradycardia noted. (tele recorded HR in upper 20's and low 30's- these are incorrect. HR measured and actually in the 70-80 range. No true bradycardia recorded on tele whatsoever). Pacemaker appears to be functioning normally. 5. Permanent AFIB; continue rate control with Cardizem. Xarelto for stroke prophylaxis 6. Chronic diastolic CHF; clinically compensated. Echo 07/25 with preserved LV systolic function . 7. Hypertension; controlled Follow-up with primary bombsight specialist upon discharge Subjective Alert, comfortable, no new complaints Objective Vital Signs Date Time Temp Pulse Resp B/P (MAP) Pulse Ox O2 Delivery O2 Flow Rate FiO2 05/07/21 11:11 98.1 84 20 79/48 (58) 91 Room Air Intake and Output 05/07/21 07:00 Intake Total 2620 ml Balance 2620 ml Intake Oral 2620 ml # Voids 4 Abdomen: Soft, No tenderness Heart: Regular rate Extremities: No edema General: Alert HEENT: Atraumatic Lungs: Clear to auscultation Neck: Supple Neuro: Normal speech Review of Relevant I have reviewed the following items trudy (where applicable) has been applied. Labs Microbiology 05/04/21 Blood Culture - Preliminary, Resulted NO GROWTH AFTER 3 DAYS... Medications Current Medications Medications (Trade) Dose Ordered Sig/Lluvia Route PRN Reason Start Time Stop Time Status Last Admin Dose Admin Donepezil HCl (Aricept) 10 mg QHS PO 05/06/21 21:00 05/06/21 20:53 Mirtazapine (Remeron Natasha-Tab) 30 mg QHS PO 05/06/21 21:00 05/06/21 21:37 Senna/Docusate Sodium (Senna Plus) 2 tab BID PO 05/06/21 21:00 05/07/21 08:06 Spironolactone (Aldactone) 25 mg DAILY PO 05/07/21 09:00 05/07/21 08:07 Torsemide (Demadex) 40 mg DAILY PO 05/07/21 09:00 05/07/21 08:05 Cyanocobalamin (Vitamin B-12) 1,000 mcg DAILY PO 05/07/21 09:00 05/07/21 08:06 Pregabalin (Lyrica) 150 mg BID PO 05/06/21 21:00 05/07/21 08:06 Budesonide (Pulmicort) 0.5 mg RTBID NEB 05/06/21 20:00 05/07/21 05:36 Albuterol Sulfate (Ventolin) 2.5 mg RTQID NEB 05/06/21 16:00 05/07/21 05:36 Vitals/I & O Vital Signs Date Time Temp Pulse Resp B/P (MAP) Pulse Ox O2 Delivery O2 Flow Rate FiO2 05/07/21 11:11 98.1 84 20 79/48 (58) 91 Room Air I & O 05/06/21 05/06/21 05/07/21 15:00 23:00 07:00 Intake Total 840 ml 580 ml 1200 ml Balance 840 ml 580 ml 1200 ml Justification of Admission: Justification of Admission: Justification of Admission Dx: Yes SHAQUILLE DAVID MD May 07, 2021 12:39
[2021-05-07 13:52] LABS: BASO # 0.1 x10^3/uL (0.0-0.2); BASO % 1 % (0-3); EOS # 0.2 x10^3/uL (0.0-0.7); EOS % 2 % (0-3); HEMOGLOBIN 8.4 g/dL (12.0-15.5); LYMPH # 2.3 x10^3/uL (1.0-4.8); LYMPH % 28 % (24-48); MEAN CORPUSCULAR HEMOGLOBIN 29 pg (25-35); MEAN CORPUSCULAR HGB CONC 34 g/dL (31-37); MEAN CORPUSCULAR VOLUME 85 fL (79-100); MONO # 0.5 x10^3/uL (0.0-1.1); MONO % 6 % (0-9); NEUT # 5.1 x10^3uL (1.8-7.7); NEUT % 62 % (31-73); PLATELET COUNT 274 x10^3/uL (140-400); RED BLOOD COUNT 2.95 x10^6/uL (3.50-5.40); RED CELL DISTRIBUTION WIDTH 15.2 % (11.5-14.5); WHITE BLOOD COUNT 8.2 x10^3/uL (4.0-11.0)
[2021-05-07 13:59] VITALS: BP 142/72
[2021-05-07 14:09] LABS: ALBUMIN 3.1 g/dL (3.4-5.0); ALBUMIN/GLOBULIN RATIO 0.8 (1.0-1.7); GFR 29.2; POTASSIUM 3.9 mmol/L (3.5-5.1); TOTAL BILIRUBIN 0.4 mg/dL (0.2-1.0); TOTAL PROTEIN 7.1 g/dL (6.4-8.2)
--- NOTE | 2021-05-07 14:28 | DISCH ---
HOME HEALTH DISCHARGE/MEDS DISCHARGE INFORMATION: Discharge Date: May 07, 2021 Final Diagnosis: Problems Medical Problems: (1) Acute metabolic encephalopathy Status: Acute (2) Tardive dyskinesia Status: Acute Condition on Discharge: Stable CODE STATUS: Code Status: DNR/DNI HOME HEALTH: Face to Face: I certify this patient is under my care and that I, or a nurse practitioner or [employer] assistant working with me, had a face to face encounter that meets the physician face to face encounter requirements with this patient on 05/07/2021 Medical Condition(s): Dementia Prison For: Medication Management Physical Therapy For: Evalulation/Treatment Occupational Therapy For: Evaluation/Treatment POST DISCHARGE ORDERS: Activity Instructions for Disc: Activity as tolerated DIET AFTER DISCHARGE: Regular CERTIFICATION STATEMENT: Certification Statement: Based on the above finding, I certify that this patient is confined to the home and needs intermittent group home care, physical therapy and/or speech therapy, or continues to need occupational therapy.~ This patient is under my care, and I have initiated the establishment of the plan of care.~ This patient will be followed by myself or a community physician who will periodically review the plan of care. DISCHARGE MEDICATIONS: Home Meds Reported Medications Torsemide (TORSEMIDE) 20 Mg Tablet, 2 TAB PO DAILY for ., #90 TAB 1 Refill 05/04/21 Spironolactone (SPIRONOLACTONE) 25 Mg Tablet, 1 TAB PO DAILY for ., #90 TAB 1 Refill 05/04/21 Sennosides/Docusate Sodium (Senna-Docusate Sodium Tablet) 1 Each Tablet, 2 TAB PO BID for . for 5 Days, #20 TAB 0 Refills 05/04/21 Rivaroxaban (XARELTO) 20 Mg Tablet, 1 TAB PO DAILYWSUP for .. for 30 Days, #30 TAB 0 Refills with food 05/04/21 Pregabalin (LYRICA) 150 Mg Capsule, 1 CAP PO BID for ., #60 CAP 5 Refills 05/04/21 Pantoprazole Sodium (PANTOPRAZOLE SODIUM) 40 Mg Tablet.dr, 1 TAB PO BID for ., #30 TAB 3 Refills 05/04/21 Mirtazapine (MIRTAZAPINE) 30 Mg Tab.rapdis, 1 TAB PO QHS for . for 30 Days, #30 TAB 0 Refills 05/04/21 Metolazone (METOLAZONE) 2.5 Mg Tablet, 2.5 MG PO WEEKLY for as needed for weight gain, TAB 05/04/21 Fluticasone/Salmeterol (ADVAIR 500-50 DISKUS) 1 Each Disk.w.dev, 1 PUFF IH BID for ., #1 INHALER 5 Refills 05/04/21 Ergocalciferol (Vitamin D2) (Ergocalciferol) 200 Mcg/1 Ml Drops, 1250 MCG PO WEEKLY for ., DROP 05/04/21 Donepezil Hcl (DONEPEZIL HCL) 10 Mg Tablet, 1 TAB PO QHS for ., #90 TAB 1 Refill 05/04/21 Diltiazem Hcl (DILTIAZEM 24HR CD) 120 Mg Cap.er.24h, 1 CAP PO DAILY for . for 30 Days, #30 CAP 0 Refills 05/04/21 Cyanocobalamin (Vitamin B-12) (B-12) 1,000 Mcg Tablet.er, 1 TAB PO DAILY for . for 30 Days, #30 TAB 0 Refills 05/04/21 Albuterol Sulfate (PROAIR HFA INHALER) 8.5 Gm Hfa.aer.ad, 1 PUFF INH PRN Q4HRS PRN for SHORTNESS OF BREATH, EACH 0 Refills 05/04/21 Acetaminophen (ACETAMINOPHEN) 500 Mg Tablet, 1 TAB PO PRN Q6HRS PRN for pain or fever for 15 Days, #60 TAB 0 Refills 05/04/21 MOLLY CAMPOS MD May 07, 2021 14:28
[2021-05-07] MEDS: RIVAROXABAN 10 MG TABLET. PO SCH (16:57)
[2021-05-07 20:00] VITALS: BP 99/66
[2021-05-07] MEDS: DONEPEZIL HCL 10 MG TABLET PO SCH (21:11)
[2021-05-07] MEDS: MIRTAZAPINE ODT 30 MG TAB.RAPDIS. PO SCH (21:13)
--- NOTE | 2021-05-07 21:33 | PN ---
DATE: 05/07/2021 SUBJECTIVE: The patient is sitting comfortably in her chair in no apparent respiratory distress. She is awake, alert, was able to eat and drink. She is walking to the bathroom on her own using a walker. Her family wanted her to go to a chcf facility. They wanted also to have an MRI and EEG. Unfortunately, she is under the care of [facility], who have already denied her admission to this hospital. She has a Micra pacemaker which is apparently a Medtronic leadless pacemaker and that is compatible with MRI. I was planning to discharge her home with home health and arranged for her to have the EEG as an outpatient with Dr. Li's office and also as an MRI at [facility], but her daughter is insisting that she wants her to go to a chcf facility. PHYSICAL EXAMINATION: GENERAL: When I examined her this afternoon, she looked well and was clearly in no apparent respiratory distress. No pallor, jaundice, cyanosis, or thyromegaly. No jugular venous distention. No limb edema. VITAL SIGNS: Her heart rate was 84, blood pressure was 110/56, her temperature was 98, respiratory rate was 18 and oxygen saturation was 92% on room air. HEAD, EYES, EARS, NOSE, AND THROAT: Normocephalic, atraumatic. NECK: Supple. HEART: Showed normal first and second heart sounds, no gallop or murmur. CHEST: Clear to auscultation, no crepitation or rhonchi. ABDOMEN: Distended, soft, nontender. NEUROLOGIC: She is demented, but without any obvious lateralizing sign. Dictation Ends Here. SUMIT DR: Kirill TID: [id number]
[2021-05-08 00:33] VITALS: BP 111/70
[2021-05-08] MEDS: ALBUTEROL SULFATE 2.5 MG/3 ML NEBU. NEB SCH (05:24)
[2021-05-08 06:02] VITALS: BP 116/75
[2021-05-08] MEDS: BUDESONIDE 0.5 MG/2 ML NEBU NEB SCH (08:00)
[2021-05-08 09:00] VITALS: BP 116/75
[2021-05-08] MEDS: SENNOSIDES/DOCUSATE 8.6/50MG TABLET. PO SCH (09:00)
[2021-05-08] MEDS: TORSEMIDE 20 MG TABLET. PO SCH (09:00)
[2021-05-08] MEDS: CYANOCOBALAMIN (VITAMIN B-12) 1,000 MCG TABLET. PO SCH (09:00)
[2021-05-08] MEDS: PANTOPRAZOLE 40 MG TABLET. PO SCH (09:00)
[2021-05-08] MEDS: PREGABALIN 50 MG CAPSULE PO SCH (09:00)
[2021-05-08] MEDS: SPIRONOLACTONE 25 MG TABLET PO SCH (09:00)
--- NOTE | 2021-05-10 09:47 | DS ---
DATE OF DISCHARGE: 05/07/2021 HOSPITAL COURSE: The patient is a 75-year-old -[place] female patient who was admitted on 05/04/2021 through the Emergency Room of [facility] with altered mental status. She apparently got up in the morning of admission to fly back to [place]. She developed nausea and vomiting twice. Soon thereafter, she started having jerking movement of the upper extremities and became very confused and not able to talk. According to ER physician, the patient was at her baseline according to patient's daughter and she was fine without any change in her mental status. There has been no head injuries or fall or change in her medication. In the Emergency Department, the patient was having jerking movement, then she fell asleep. Few hours later, the patient was found to be very drowsy. She was transferred to the floor in a drowsy state. Neuro consult was requested to evaluate acute change in mental status. According to nursing staff on the floor, the patient has been sleepy until she was seen by the neurologist and found to be able to communicate and having jerking movement confined to the left upper extremity and tremors of the head. In fact, by the time I saw her, she was awake, alert, continued to be somewhat confused and she did not improve further yesterday, on 05/05 and 05/06 and today she is basically sitting in her chair, able to feed herself, able to walk with a walker to the bathroom. She was evaluated by the physical therapist and in fact the neurologist recommended the patient can be discharged to do the EEG and MRI as an outpatient. I did schedule her EEG with Dr. Li on Saturday 05/12 at 9:30 or 11:00 and I spoke with the scheduling office at [facility] to arrange for an MRI of her brain. She has a Micra pacemaker, which is a leadless pacemaker that is compatible with MRI and we have had a lengthy discussion with her both daughters, especially the one in [place], [place]. We spoke with the development representative of the [facility] and although theoretically the [facility] is in the network, if we get the approval from the [facility], she can be discharged to [facility]; if not, which is very less likely possibility given the evaluation by the physical therapist, she will be discharged home with home health and will continue with all the arrangement for outpatient investigation of her altered mental status that has completely resolved with an EEG and MRI. I will write her prescription for all her medications that can be taken to any pharmacy here. PHYSICAL EXAMINATION: GENERAL: When I examined her this afternoon, she looked well and was clearly in no apparent respiratory distress. She is pale. No jaundice, cyanosis, no lymphadenopathy, no thyromegaly, no jugular venous distention. No lower limb edema. VITAL SIGNS: Her heart rate was 77, blood pressure was 142/72, temperature was 97.7, respiratory rate 20, and oxygen saturation was 95%. HEAD, EYES, EARS, NOSE AND THROAT: Normocephalic, atraumatic. NECK: Supple. HEART: Showed normal first and second heart sounds. No gallop, rub or murmur. CHEST: Clear to auscultation, no crepitation or rhonchi. ABDOMEN: Distended, soft, nontender. NEUROLOGIC: She was grossly intact. She is demented obviously, but all her cranial nerves are intact. She moves extremities without difficulty. LABORATORY DATA: Showed a white cell count of 8200, hemoglobin 8.4, hematocrit 25, MCV was 85 and platelet count 274,000 with normal manual differential. Her chemistry showed a serum sodium of 130, potassium 3.9, chloride 95, bicarbonate 24, anion gap of 11, BUN 36, creatinine was 2, estimated GFR was 29 mL per minute. Her glucose was 134, calcium was 8. Total bilirubin, AST, ALT, alkaline phosphatase were normal. Total protein 7.1, albumin 3.1. Her prothrombin time, INR and APTT were normal. Urinalysis was essentially unremarkable. Toxic screen was negative. Her coronavirus by PCR was not detectable as well as her influenza A and B. DISCHARGE MEDICATIONS: She will be discharged either home with home health or to a penitentiary facility to continue on acetaminophen 600 mg every 6 hours, albuterol sulfate for ProAir 1 puff twice a day every 4 hours, cyanocobalamin 1000 mcg tablet once a day, diltiazem hydrochloride 120 mg once a day, Aricept 10 mg at bedtime, ergocalciferol 200 mcg, 1250 mg weekly. She is on Advair Diskus 500/50 one puff twice a day, metolazone 2.5 mg p.o. weekly and mirtazapine 30 mg at bedtime, Protonix 40 mg twice a day, pregabalin 150 mg b.i.d., rivaroxaban 20 mg daily. She is on Senna-S 2 tablets twice a day, spironolactone 25 mg daily and torsemide 40 mg once a day. FINAL DISCHARGE DIAGNOSES: 1. Altered mental status, resolved. 2. Longstanding history of dementia. 3. The patient has multiple other medical problems including atrial fibrillation, rate controlled, well anticoagulated. 4. Hypertension. 5. Chronic kidney disease. 6. Vitamin D deficiency. 7. Vitamin B12 deficiency. 8. Mild hyponatremia, resolved. ROBBIN DR: Kirill TID: [id number]
[2021-05-13] MEDS ORDERED: CHOLECALCIFEROL (VITAMIN D3) 1,000 UNIT TABLET PO SCH (09:00)
--- NOTE | 2021-05-14 02:43 | PN ---
DATE: 05/08/2021 SUBJECTIVE: The patient denies any medical or neurological complaints. OBJECTIVE: GENERAL: Obese female in no acute distress. VITAL SIGNS: Blood pressure 116/75, respiratory rate 18, pulse is 76 and regular, temperature is 96, and oxygen saturation 99% on room air. HEENT: Normocephalic, atraumatic. Otherwise unremarkable. NECK: Supple. Negative for carotid bruit, lymphadenopathy or thyromegaly. LUNGS: Clear to A and P. CARDIOVASCULAR: Regular rate and rhythm. Normal S1, S2. ABDOMEN: Soft. EXTREMITIES: Negative for cyanosis, clubbing or pedal edema. NEUROLOGIC: Mental status: The patient is alert and oriented x2. The speech is fluent. There is no language dysfunction. Memory, judgment and abstracting thinking are fair. The patient denies hallucination or delusion. Cranial nerves are intact. No focal motor or sensory deficits. The strength is 4/5 throughout. Sensory examination revealed normal pinprick and light touch senses throughout. Deep tendon reflexes were symmetric and hypoactive with absent Achilles responses. Gait not tested. IMPRESSION: 1. Acute encephalopathy -- resolved. 2. Dementia, probably of Alzheimer type of moderate severity. 3. Multiple medical problems include hypertension, hyperlipidemia, vitamin D and vitamin B12 deficiency, chronic kidney disease and depression. RECOMMENDATIONS: 1. We will continue with current management initiated by Dr. Maza. 2. Physical therapy as tolerated. 3. We will arrange for electroencephalogram in Dr. Li's office next week. RAFA DR: Joce TID: [id number]
--- NOTE | 2021-05-14 02:49 | PN ---
DATE: 05/07/2021 SUBJECTIVE: The patient denies any new medical or neurological complaints. She is sitting in a chair and having breakfast. She denies headaches, visual disturbances, nausea, vomiting, chest pain, shortness of breath, or palpitation. OBJECTIVE: GENERAL: Obese female in no acute distress. VITAL SIGNS: Blood pressure 110/56, respiratory rate 20, pulse is 69, oxygen saturation 91% on room air, and temperature is 98.1. HEENT: Normocephalic, atraumatic. Otherwise unremarkable. NECK: Supple, negative for carotid bruit, lymphadenopathy, or thyromegaly. LUNGS: Clear to A and P. CARDIOVASCULAR: Regular rate and rhythm, normal S1, S2. There is no S3, S4, murmur. ABDOMEN: Soft. Bowel sounds positive. EXTREMITIES: Negative for cyanosis, clubbing, or pedal edema. NEUROLOGIC: Mental status: The patient is alert and oriented x 2. The speech is fluent. There is no language dysfunction. Memory, judgment, and abstracting thinking are fair. The patient denies hallucination or delusion. Cranial nerves are grossly intact. No focal motor or sensory deficits. The strength is 4/5 throughout. Sensory examination revealed normal pinprick and light touch senses throughout. Deep tendon reflexes were asymmetric and hypoactive with absent Achilles responses. Gait not tested. LABORATORY DATA: CBC revealed blood cells of 8.2 thousand, hemoglobin 8.4, hematocrit 25, platelet count 274,000. Chemistry revealed a sodium of 138, potassium 3.9, chloride 95, CO2 is 24, BUN 36, creatinine 2, glucose 134, calcium 8. IMPRESSION: 1. Acute encephalopathy -- resolved. 2. Dementia. 3. Multiple medical problems include paroxysmal atrial fibrillation, depression, hypertension, vitamin D and vitamin B12 deficiency, and chronic kidney disease. RECOMMENDATIONS: 1. Continue with current medical care initiated by Dr. Maza. 2. Continue with physical therapy as tolerated. ANAHY/PORSHA DR: ANAHY/rob TID: [id number]
== END 2021-05-08 10:46 | DRG 91 ==
LOC: ER 08:05 → 1 SOUTH 10:51
PROVIDERS: ADMIT Hospitalist; ATTEND Hospitalist
DX: G92.9 Unspecified toxic encephalopathy (principal); N17.0 Acute kidney failure with tubular necrosis; I50.32 Chronic diastolic (congestive) heart failure; E87.0 Hyperosmolality and hypernatremia; E87.1 Hypo-osmolality and hyponatremia; I13.0 Hypertensive heart and chronic kidney disease with heart failure and stage 1 through stage 4 chronic kidney disease, or unspecified chronic kidney disease; I48.21 Permanent atrial fibrillation; D63.8 Anemia in other chronic diseases classified elsewhere; D72.829 Elevated white blood cell count, unspecified; E53.8 Deficiency of other specified B group vitamins; E55.9 Vitamin D deficiency, unspecified; E78.2 Mixed hyperlipidemia; F03.90 Unspecified dementia, unspecified severity, without behavioral disturbance, psychotic disturbance, mood disturbance, and anxiety; F32.A Depression, unspecified; G24.01 Drug induced subacute dyskinesia; I27.20 Pulmonary hypertension, unspecified; I35.8 Other nonrheumatic aortic valve disorders; I36.1 Nonrheumatic tricuspid (valve) insufficiency; J44.9 Chronic obstructive pulmonary disease, unspecified; N18.9 Chronic kidney disease, unspecified; R13.14 Dysphagia, pharyngoesophageal phase; Z79.01 Long term (current) use of anticoagulants; Z82.49 Family history of ischemic heart disease and other diseases of the circulatory system; Z95.0 Presence of cardiac pacemaker; E66.01 Morbid (severe) obesity due to excess calories
CPT/HCPCS: 36415; 70450; 71045; 71250; 74150; 80053; 80307; 80329; 81001; 82550; 82803; 82947; 83605; 83690; 83735; 83880; 84100; 84484; 85007; 85025; 85610; 85730; 87040; 87426; 87804; 93005; 94640; G0480; J2060; U0003; 97110; 97116; 97530; 99285-25; J7613